=== PATIENT | male | born 1965 | race African-American/Black ===

== ENCOUNTER 2020-09-26 04:38 | Emergency (ER) | payer SELFPAY ==
[~2020-09-26] VITALS: Ht 175.3 cm; Wt 80.0 kg
[~2020-09-26 04:38] MED LIST: LISI-170 PO; METF-163 PO
--- NOTE | 2020-09-26 04:58 | NUR ---
THIS IS A 55M THAT COMES IN W/ C/O CHEST PAIN, PT STS IT STARTED WHEN HE WAS GAMBLING AND WORSENS WITH MOVEMENT. PT CONNECTED TO ALL MONITORING VSS NADN NO NEEDS AT THIS TIME
[2020-09-26] MEDS ORDERED: KETOROLAC 30 MG/1 ML IM ONE (05:30)
[2020-09-26] MEDS ORDERED: ASPIRIN 81 MG TABLET CHEW PO ONE (05:30)
[2020-09-26] MEDS ORDERED: KETOROLAC 30 MG/1 ML ONE (05:36)
[2020-09-26] MEDS ORDERED: ASPIRIN 81 MG TABLET CHEW ONE (05:36)
[2020-09-26 05:42] LABS: BASOPHILS % (AUTO) 2 % (0-1); EOSINOPHILS % (AUTO) 1 % (1-7); LYMPHOCYTES % (AUTO) 34 % (22-44); MEAN CORPUSCULAR HEMOGLOBIN 30.8 pg (27.5-34.5); MEAN CORPUSCULAR HGB CONC 34.2 g/dL (33.2-36.2); MEAN PLATELET VOLUME 7.5 fL (7.4-10.4); MONOCYTES % (AUTO) 7 % (2-9); NEUTROPHILS % (AUTO) 56 % (42-75); PLATELET COUNT 262 x10^3/uL (130-400); RED BLOOD COUNT 4.42 x10^6/uL (4.38-5.82); RED CELL DISTRIBUTION WIDTH 13.9 % (9.4-14.8)
[2020-09-26 05:44] LABS: MD NO
[2020-09-26 05:45] LABS: ALBUMIN 3.5 g/dL (3.4-5.0); ANION GAP 5 mmol/L (5-15); CALCIUM 8.9 mg/dL (8.5-10.1); CHLORIDE 107 mmol/L (98-107)
[2020-09-26 05:49] LABS: TROPONIN I < 0.015 ng/mL (0.000-0.045)
--- NOTE | 2020-09-26 06:00 | NUR ---
PT RESTING ON GURNEY EYES CLOSED NADN, NO NEEDS AT THIS TIME
--- NOTE | 2020-09-26 06:20 | NUR ---
ALL RESULTS BACK CHART UP FOR RECHECK
--- NOTE | 2020-09-26 07:27 | NUR ---
Patient/Caregiver given discharge instructions and they have confirmed that they understand the instructions. Patient ambulatory with steady gait.
[2020-09-26 07:32] VITALS: BP 110/63
== END 2020-09-26 07:34 | disposition home or self-care (01) ==
LOC: ED 06:30
DX: R07.2 Precordial pain (principal); R07.89 Other chest pain; I10 Essential (primary) hypertension; E11.9 Type 2 diabetes mellitus without complications; F17.200 Nicotine dependence, unspecified, uncomplicated
CPT/HCPCS: 36415; 71045; 80048; 82040; 84484; 85025; 93005; 96372; 99285; J1885